=== PATIENT | male | born 1975 | race Caucasian/White ===

== ENCOUNTER 2017-04-08 06:36 | Emergency (ER) | payer SELFPAY ==
[~2017-04-08] VITALS: Ht 193 cm; Wt 100.0 kg
[~2017-04-08 06:36] MED LIST: EXCEES PO
[2017-04-08 06:40] VITALS: BP 156/89
== END 2017-04-08 09:05 | disposition left against medical advice (07) ==
LOC: EMS 06:37
DX: M25.562 Pain in left knee (principal); M25.462 Effusion, left knee; Z53.21 Procedure and treatment not carried out due to patient leaving prior to being seen by health care provider